=== PATIENT | female | born 1950 | race Caucasian/White ===

== ENCOUNTER 2020-10-12 19:29 | Emergency (ER) | payer BC ==
[~2020-10-12] VITALS: Ht 167.6 cm; Wt 87.0 kg
[~2020-10-12 19:29] MED LIST: AMOX/K CLAV875 M1 PO; AMOXICILLIN/CL875 MG PO; CHERATUSSIN OR; CIPROFLOXACN500 MG PO; FLONASE NASAL50 MCG; FLORASTOR250 M1 PO; LORTAB5 PO; MEDDOSEPAK PO; NO; ROBITUSSIN AC10 ML PO; TESSALON200 MG PO; ZANTAC150 M1 PO
[2020-10-12] MEDS ORDERED: BENZONATATE200 MG PO (20:01)
[2020-10-12] MEDS ORDERED: MEDDOSEPAK PO (20:02)
[2020-10-12] MEDS ORDERED: MECLIZINE25 MG PO (20:02)
[2020-10-12] MEDS ORDERED: CEPHALEXIN500 MG PO (20:02)
[2020-10-12 20:35] LABS: HEMATOCRIT 49.3 % (37.0-47.0); HEMOGLOBIN 15.9 g/dl (12.0-16.0); IMMATURE GRANULOCYTES 0.4 % (0.0-5.0); MEAN CELL VOLUME 87.4 fL CALC (80.0-100.0); MEAN CORPUSCULAR HGB 28.2 pG CALC (26.0-32.0); MEAN CORPUSCULAR HGB CONC 32.3 g/dL CAL (32.0-36.0); NEUT# 6.31 thou/uL (2.00-7.15); RED BLOOD COUNT 5.64 mill/uL (4.20-5.60); RED CELL DISTRI WIDTH 13.8 % (11.5-15.5)
[2020-10-12 20:37] LABS: URINE BILIRUBIN - DIPSTICK NEGATIVE (NEGATIVE); URINE BLOOD DIPSTICK NEGATIVE (NEGATIVE); URINE COLOR YELLOW; URINE GLUCOSE - DIPSTICK NEGATIVE (NEGATIVE); URINE KETONE TRACE mg/dL (NEGATIVE); URINE LEUK ESTERASE NEGATIVE (NEGATIVE); URINE NITRITE - DIPSTICK NEGATIVE (Negative); URINE PROTEIN - DIPSTICK TRACE mg/dL (NEG-TRACE); URINE SPECIFIC GRAVITY 1.015
[2020-10-12 20:53] LABS: ALBUMIN 4.1 g/dL (3.2-5.0); ALKALINE PHOSPHATASE 58 u/l (38-126); ANION GAP 11 (6-22 (CALC)); BILIRUBIN, TOTAL 0.7 mg/dL (0.0-1.4); BUN 17 mg/dL (8-23); BUN/CREATININE RATIO 24 (12-20 (CALC)); CARBON DIOXIDE 31 mmol/l (22-30); CHLORIDE 100 mmol/l (95-108); CREATININE 0.7 mg/dL (0.5-1.0); GFR > 60 ML/MIN (>=60 (CALC)); GFR FOR AFR.AMER. > 60 ML/MIN (>=60 (CALC)); SGOT/AST 35 u/l (9-36); SODIUM 138 mmol/l (137-146); TOTAL PROTEIN 8.2 g/dL (6.3-8.2)
[2020-10-12 21:05] LABS: MYOGLOBIN 41 ng/mL (0 - 62)
[2020-10-12 21:46] VITALS: BP 148/75
[2020-10-12] MEDS ORDERED: ROBITUSSIN AC10 ML PO (22:16)
== END 2020-10-12 22:16 | disposition home or self-care (01) | DRG 179 ==
LOC: ED 19:29
PROVIDERS: Emergency Medicine
DX: U07.1 COVID-19 (principal); M79.10 Myalgia, unspecified site

== ENCOUNTER 2020-10-15 05:41 | Emergency (ER) | payer BC ==
[~2020-10-15] VITALS: Ht 167.6 cm; Wt 95.0 kg
[~2020-10-15 05:41] MED LIST changes: +BENZONATATE200 MG PO; +CEPHALEXIN500 MG PO; +MECLIZINE25 MG PO
[2020-10-15] MEDS ORDERED: ZOFRAN4 MG/TAB PO (06:22)
[2020-10-15] MEDS ORDERED: ACETAMINOPHEN325 MG PO (06:24)
[2020-10-15] MEDS ORDERED: IBUPROFEN600 MG PO (06:24)
[2020-10-15 07:00] LABS: HEMATOCRIT 48.9 % (37.0-47.0); HEMOGLOBIN 15.4 g/dl (12.0-16.0); IMMATURE GRANULOCYTES 0.6 % (0.0-5.0); MEAN CELL VOLUME 88.9 fL CALC (80.0-100.0); MEAN CORPUSCULAR HGB CONC 31.5 g/dL CAL (32.0-36.0); NEUT# 6.87 thou/uL (2.00-7.15); RED BLOOD COUNT 5.5 mill/uL (4.20-5.60); RED CELL DISTRI WIDTH 14.4 % (11.5-15.5)
[2020-10-15 07:22] LABS: ALBUMIN 3.8 g/dL (3.2-5.0); CREATININE 1.2 mg/dL (0.5-1.0); POTASSIUM 4.6 mmol/l (3.5-5.1); TOTAL PROTEIN 7.9 g/dL (6.3-8.2)
[2020-10-15 08:24] VITALS: BP 94/48
== END 2020-10-15 08:53 | disposition short-term general hospital (02) | DRG 177 ==
LOC: ED 05:41
PROVIDERS: Emergency Medicine
DX: U07.1 COVID-19 (principal); J12.89 Other viral pneumonia; R41.82 Altered mental status, unspecified; R09.02 Hypoxemia; R79.89 Other specified abnormal findings of blood chemistry